=== PATIENT | male | born 1955 | race Caucasian/White ===

== ENCOUNTER 2022-02-18 12:39 | Emergency (ER) | payer OTHER, MEDICARE ==
[~2022-02-18] VITALS: Ht 170.2 cm; Wt 74.2 kg
[~2022-02-18 12:39] MED LIST: HYDROCHLOROTHIA25 MG PO; LISINOPRIL20 MG PO; OXYCONTIN20 MG PO; PREDNISONE10 MG PO; VALIUM5 MG PO; ZANAFLEX4 MG PO
[2022-02-18] MEDS ORDERED: CEPHALEXIN500 M1 PO (15:23)
[2022-02-18] MEDS ORDERED: HYDROCODON-ACE1 EA10 PO (15:23)
== END 2022-02-18 15:58 | disposition home or self-care (01) ==
LOC: ED 12:39
DX: L03.114 Cellulitis of left upper limb (principal); I10 Essential (primary) hypertension; Z79.899 Other long term (current) drug therapy
CPT/HCPCS: 36415; 73110; 85025; 85651; 86140; 99284-25

== ENCOUNTER 2023-05-17 13:11 | Emergency (ER) | payer OTHER, MEDICARE ==
[~2023-05-17] VITALS: Ht 170.2 cm; Wt 76.4 kg
[~2023-05-17 13:11] MED LIST changes: +CEPHALEXIN500 M1 PO; +HYDROCODON-ACE1 EA10 PO
[2023-05-17] MEDS ORDERED: NORVASC10 MG PO (13:20)
[2023-05-17] MEDS ORDERED: BACTRIM DS TAB1 EACH PO (14:21)
[2023-05-17 14:31] VITALS: BP 130/68
== END 2023-05-17 14:31 | disposition home or self-care (01) ==
LOC: ED 13:11
DX: L03.114 Cellulitis of left upper limb (principal); S61.412A Laceration without foreign body of left hand, initial encounter; I10 Essential (primary) hypertension; W29.8XXA Contact with other powered hand tools and household machinery, initial encounter; Z79.899 Other long term (current) drug therapy
CPT/HCPCS: 99282; A9270